=== PATIENT | male | born 1995 | race Caucasian/White ===

== ENCOUNTER 2020-01-21 15:30 | Emergency (ER) | payer OTHER ==
[2020-01-21] MEDS ORDERED: ALBUTEROL SULFATE HFA (90 MCG/PUFF) 8 GM MDI (1 MDI/ER DISP) IH ONE (16:34)
[2020-01-21] MEDS ORDERED: METHYLPREDNISOLONE ACETATE INJ 40 MG/1 ML ML IM ONE (16:34)
[2020-01-21] MEDS ORDERED: DEXAMETHASONE SOD PHOS INJ 10 MG/1 ML VIAL IM ONE (16:34)
[2020-01-21] MEDS ORDERED: IPRATROPIUM BROMIDE 0.02% NEB 0.5 MG/2.5 ML AMPUL NEB ONE (16:35)
--- NOTE | 2020-01-21 16:53 | RADIOLOGY REPORT (SQ) ---
EXAM DESCRIPTION: CHEST 2 VIEWS COMPLETED DATE/TIME: 01/21/2020 4:43 pm REASON FOR STUDY: cough COMPARISON: None. EXAM PARAMETERS: NUMBER OF VIEWS: two views TECHNIQUE: Digital Frontal and Lateral radiographic views of the chest acquired. RADIATION DOSE: NA LIMITATIONS: none FINDINGS: LUNGS AND PLEURA: No opacities, masses or pneumothorax. No pleural effusion. MEDIASTINUM AND HILAR STRUCTURES: No masses or contour abnormalities. HEART AND VASCULAR STRUCTURES: Heart normal size. No evidence for failure. BONES: No acute findings. HARDWARE: None in the chest. OTHER: No other significant finding. IMPRESSION: NO ACUTE RADIOGRAPHIC FINDING IN THE CHEST. TECHNICAL DOCUMENTATION: JOB ID: [id number] 2010 [email or web address]- All Rights Reserved [place] location - IP/workstation name: [email or web address]
--- NOTE | 2020-01-21 17:47 | ER Document Report ---
ED Respiratory Problem - General Chief Complaint: Cough Stated Complaint: COUGH,CONGESTION Time Seen by Provider: 01/21/20 16:26 Mode of Arrival: Ambulatory Information source: Patient TRAVEL OUTSIDE OF THE [place] IN LAST 30 DAYS: No - HPI Patient complains to provider of: Asthma, Cough Onset: Just prior to arrival Duration: Better Initiating Event: No: Allergy Quality of pain: No pain Cough: Nonproductive Sputum amount: None - Related Data Allergies/Adverse Reactions: No Known Allergies Allergy (Verified 01/21/20 16:26) Past Medical History - General Information source: Patient - Social History Smoking Status: Never Smoker Frequency of alcohol use: Occasional Drug Abuse: None Family History: None Patient has suicidal ideation: No Patient has homicidal ideation: No Pulmonary Medical History: Reports: Hx Asthma Review of Systems - Review of Systems Constitutional: No symptoms reported EENT: No symptoms reported Cardiovascular: No symptoms reported Respiratory: No symptoms reported, Cough Gastrointestinal: No symptoms reported Genitourinary: No symptoms reported Male Genitourinary: No symptoms reported Musculoskeletal: No symptoms reported Skin: No symptoms reported Hematologic/Lymphatic: No symptoms reported Neurological/Psychological: No symptoms reported Physical Exam - Vital signs Vitals: Temp Pulse Resp BP Pulse Ox 98.1 F 67 16 154/83 H 100 01/21/20 16:07 01/21/20 16:07 01/21/20 16:07 01/21/20 16:07 01/21/20 16:07 Interpretation: Normal - General General appearance: Appears well, Alert - HEENT Head: Normocephalic, Atraumatic Eyes: Normal Pupils: PERRL - Respiratory Respiratory status: No respiratory distress Chest status: Nontender Breath sounds: Normal Chest palpation: Normal - Cardiovascular Rhythm: Regular Heart sounds: Normal auscultation Murmur: No - Abdominal Inspection: Normal Distension: No distension Bowel sounds: Normal Tenderness: Nontender Organomegaly: No organomegaly - Back Back: Normal, Nontender - Extremities General upper extremity: Normal inspection, Nontender, Normal color, Normal ROM, Normal temperature General lower extremity: Normal inspection, Nontender, Normal color, Normal ROM, Normal temperature, Normal weight bearing. No: Benjamin's sign - Neurological Neuro grossly intact: Yes Cognition: Normal Orientation: AAOx4 Lin Coma Scale Eye Opening: Spontaneous Lin Coma Scale Verbal: Oriented Lin Coma Scale Motor: Obeys Commands Lin Coma Scale Total: 15 Speech: Normal Motor strength normal: LUE, RUE, LLE, RLE Sensory: Normal - Psychological Associated symptoms: Normal affect, Normal mood - Skin Skin Temperature: Warm Skin Moisture: Dry Skin Color: Normal Course - Vital Signs Vital signs: Temp Pulse Resp BP Pulse Ox 98.1 F 67 16 154/83 H 100 01/21/20 16:07 01/21/20 16:07 01/21/20 16:07 01/21/20 16:07 01/21/20 16:07 - Diagnostic Test Radiology results interpreted by me: 01/21/20 17:44 Shaun No Known Allergies Allergy (Verified 01/21/20 16:26) Isolation Standard Height 5 ft 11 in Weight 110 kg Discharge Information ED Provider: SAMANTHA HAWKINS Status: With Provider Time Seen by Provider: 01/21/20 16:26 Condition: Triaged At: 01/21/20 15:31 Emergency Discharge Date/Time: Emergency Discharge Disposition: Clinical Impression Emergency Discharge Comment: Discharge Intervention Last Done *Vital Signs (ED) Discharge Documentation Left Without Being Seen (LWBS) Left Against Medical Advice (AMA)/Eloped Instructions: Stand-Alone Forms: Prescriptions: Visit Report - Forms: - Referrals: Intake and Output 01/20/20 01/21/20 01/22/20 06:59 06:59 06:59 Weight 110 kg Radiology Reports Chest X-Ray 01/21/20 16:35 IMPRESSION: NO ACUTE RADIOGRAPHIC FINDING IN THE CHEST. Medications Discontinued Medications Generic Name Dose Route Start Last Admin Trade Name Freq PRN Reason Stop Dose Admin Albuterol 2 puff 01/21/20 16:34 01/21/20 17:14 Ventolin Hfa 8 Gm Mdi (1 Mdi/Er Disp) IH 01/21/20 16:35 2 puff NOW ONE Administration Dexamethasone Sodium Phosphate 4 mg 01/21/20 16:34 01/21/20 17:11 Decadron Inj 10 Mg/1 Ml Vial IM 01/21/20 16:35 4 mg NOW ONE Administration Ipratropium [place] 0.5 mg 01/21/20 16:35 01/21/20 17:13 Atrovent 0.02% Neb 0.5 Mg/2.5 Ml Ampul NEB 01/21/20 16:36 0.5 mg NOW ONE Administration Methylprednisolone 40 mg 01/21/20 16:34 01/21/20 17:14 Depo-Medrol Inj 40 Mg/1 Ml Vial IM 01/21/20 16:35 40 mg NOW ONE Administration Nursing Notes 01/21/20 16:28 ED Nursing Note by VAL PALOMO Pt presents to the ED with reports of cough, wheezing, chest pain. Pt states he has been seen at [facility] four times. Pt states two weeks ago they put on levaquin and a steroid. Pt states he went back and was told he had pneumonia states he was put on a z-pack which he started two days ago. Pt states he was prescribed an inhaler. Pt alert and oriented with NAD noted. Pt breaths even and unlabored with airway patent and intact. Will continue to monitor. Initialized on 01/21/20 16:28 - END OF NOTE Orders 01/21/20 16:34 Albuterol Sulfate [Ventolin Hfa 8 gm Mdi (1 Mdi/ER Disp)] 2 puff IH NOW ONE Dexamethasone Sod Phosphate [Decadron Inj 10 mg/1 ml Vial] 4 mg IM NOW ONE Methylprednisolone Acetate [Depo-Medrol Inj 40 mg/1 ml Vial] 40 mg IM NOW ONE 01/21/20 16:35 Chest [CHEST 2 VIEWS] [RAD] Stat Ipratropium [place] [Atrovent 0.02% Neb 0.5 mg/2.5 ml Ampul] 0.5 mg NEB NOW ONE Nebulizer Therapy Routine [RESPCARE] NOW Vital Signs Temp Pulse Resp BP Pulse Ox 01/21/20 16:07 98.1 F 67 16 154/83 H 100 Assessments/Treatments *Vital Signs CAPTURE Start: 01/21/20 15:31 Freq: Status: Active Protocol: Activity Type Activity Date Activity User E-Sign Co-Sign Detail Recorded Client Recorded Date Recorded By Document 01/21/20 16:07 DWE [id number] 01/21/20 16:07 DWE 01/21/20 16:07 VS4 Data Capture Temperature (97.0 F-100.4 F) 98.1 F VS4 Temperature Source Oral Pulse Rate (60-100) 67 Pulse Source Pulse Ox Respiratory Rate (12-20) 16 Pulse Oximetry (92-100) 100 Oxygen Delivery Method Room Air BP Location Right Arm BP Position Sitting Blood Pressure (100/60-125/85) 154/83 Blood Pressure Mean (mm Hg) 106 Height 5 ft 11 in Weight (1 kg-500 kg) 110 kg HPI- Respiratory Problem Start: 01/21/20 15:31 Freq: Q12H Status: Active Protocol: Activity Type Activity Date Activity User E-Sign Co-Sign Detail Recorded Client Recorded Date Recorded By Document 01/21/20 16:27 ACH [email or web address] 01/21/20 16:32 ACH 01/21/20 16:27 HPI- Respiratory Problem Onset x2 weeks Timing/Duration Worse/ persistent Context Hx asthma Associated symptoms Chest pain/ discomfort, Cough Overall pain level 2 ED Focused Assessment ROS below otherwise negative Yes Fever No Chills No Seeking Treatment Today For No Mental Health Issues Chest pain Yes Coughing Yes Eye Opening Spontaneous Verbal Response Oriented Motor Response Obeys Commands GCS Total (15 points) 15 Medical/Surgical History Hx Asthma Yes LEP & Disabilities Start: 01/21/20 15:31 Freq: NOW Status: Complete Protocol: Activity Type Activity Date Activity User E-Sign Co-Sign Detail Recorded Client Recorded Date Recorded By Document 01/21/20 15:31 LFI [id number] 01/21/20 15:31 LFI 01/21/20 15:31 Limited Algerian Proficient (LEP) Preferred Language To Receive Medical Algerian Services Impairments Vision Impairments None Hearing Impairments None Mobility Impairments None Service Animal Utilized No Triage Assessment Start: 01/21/20 15:31 Freq: NOW Status: Active Protocol: Activity Type Activity Date Activity User E-Sign Co-Sign Detail Recorded Client Recorded Date Recorded By Document 01/21/20 16:27 ACH [email or web address] 01/21/20 16:32 ACH 01/21/20 16:27 Limited Algerian Proficient (LEP) Preferred Language To Receive Medical Algerian Services Impairments Vision Impairments None Hearing Impairments None Mobility Impairments None Service Animal Utilized No Triage Nursing Assessment Chief Complaint Cough Priority Level 4 Were Vital Signs Obtained and Verified? Yes Pain Level 2 Location chest Is This a Long Bone Pain Patient? No TRAVEL OUTSIDE OF THE [place] IN LAST 30 No DAYS Allergies Verified Yes Seeking Treatment Today For No Mental Health Issues Thoughts of by Suicide in the Last No 30 Days Homicidial Thoughts in the Last 30 Days No Smoking Status Never Smoker Drug Abuse None Frequency of alcohol use Occasional Dialysis Status NOT Dialysis Patient- CURRENLTY Infection Control Screen CRE Precaution Screen Negative History Isolation Precautions Standard ED Medication Reconciliation ED/Outpatient Home Medication No Home Reconciliation Medications 01/21/20 16:28 ED Nursing Note by VAL PALOMO Pt presents to the ED with reports of cough, wheezing, chest pain. Pt states he has been seen at [facility] four times. Pt states two weeks ago they put on levaquin and a steroid. Pt states he went back and was told he had pneumonia states he was put on a z-pack which he started two days ago. Pt states he was prescribed an inhaler. Pt alert and oriented with NAD noted. Pt breaths even and unlabored with airway patent and intact. Will continue to monitor. Initialized on 01/21/20 16:28 - END OF NOTE Discharge - Discharge Clinical Impression: Reactive airway disease Condition: Good Disposition: HOME, SELF-CARE Instructions: Reactive Airway Disease ([facility]) Additional Instructions: This 24-year-old male who presented to the emergency room today with cough cold congestion he had been seen twice in the urgent care over the last 2 weeks been put on antibiotics told he had pneumonia and has really not gotten any better so he presented here today for further evaluation Prescriptions: Albuterol Sulfate [Ventolin Hfa 8 gm Mdi] 2 puff IH Q4HP PRN #1 inhaler PRN Reason: asthma Prednisone [Deltasone 20 mg Tablet] 3 tab PO DAILY 5 Days #15 tablet
[2020-01-21 17:51] VITALS: BP 116/66
== END 2020-01-21 18:01 | disposition home or self-care (01) ==
LOC: ER 15:30
DX: J45.909 Unspecified asthma, uncomplicated (principal); J18.9 Pneumonia, unspecified organism; R05 Cough; R07.9 Chest pain, unspecified
CPT/HCPCS: 94640; 99283; 96372; 71046; J1030; J1100; J3490 ×2